=== PATIENT | male | born 1980 | race Two or more races ===

== ENCOUNTER 2019-01-11 19:54 | Emergency (ER) | payer MEDICAID ==
[~2019-01-11] VITALS: Ht 172.7 cm; Wt 65.8 kg
[2019-01-11 20:53] VITALS: BP 117/70
[2019-01-11] MEDS ORDERED: IBUPROFEN 600 MG TABLET PO ONE ×2 (21:30→21:33)
== END 2019-01-11 22:05 | disposition home or self-care (01) ==
LOC: ER 19:54
DX: H92.02 Otalgia, left ear (principal); M26.602 Left temporomandibular joint disorder, unspecified; Z98.890 Other specified postprocedural states